=== PATIENT | male | born 1990 | race Caucasian/White ===

== ENCOUNTER 2021-11-18 18:55 | Emergency (ER) | payer OTHER, SELFPAY ==
--- NOTE | ~2021-11-18 | XR_ITS ---
EXAMINATION: XR ankle RT min 3V DATE: 11/18/2021 19:18 INDICATION: Right ankle injury and pain. TECHNIQUE: 4 views of right ankle were obtained. COMPARISON: None. FINDINGS: Bone alignment is normal. No fracture. Joint spaces are normal. There is an enthesophyte at plantar aspect of calcaneal tuberosity. IMPRESSION: 1. No fracture. Reviewed, dictated and finalized at location A. IMPRESSION: 1. No fracture.
[2021-11-18 19:03] VITALS: BP 135/85; PULSE 89; RESP 16; TEMP 37; O2SAT 100
--- NOTE | 2021-11-18 19:11 | ED.GENADULT ---
HPI - General Adult General Chief complaint: Extremity Injury, Lower Stated complaint: Right ankle pain Time Seen by Provider: 11/18/21 18:57 Source: patient Mode of arrival: ambulatory Limitations: no limitations History of Present Illness HPI narrative: Patient presents for evaluation of right ankle pain. He indicates that he was working approximately 1 week ago when a piece of steel hit him in the right ankle. Since that time he has had constant pain in the affected area. At rest his pain is 5 out of 10 in severity but increases to 7 out of 10 with weightbearing and palpation of the affected area. No radicular component. No paresthesias. He reports associated bruising. He has not taken any medication to assist with his symptoms. No additional complaints or concerns. Related Data Home Medications Medication Instructions Recorded Confirmed No Home Medications 11/18/21 11/18/21 Allergies Allergy/AdvReac Type Severity Reaction Status Date / Time No Known Allergies Allergy Verified 11/18/21 19:08 Review of Systems Review of Systems: CONSTITUTIONAL: Denies fever, chills, or sweats. EYES: Denies visual changes, redness, or discharge. ENT: Denies rhinorrhea, congestion, sore throat, or otalgia. CARDIOVASCULAR: Denies chest pain, palpitations, or edema. RESPIRATORY: Denies cough or dyspnea. GASTROINTESTINAL: Denies abdominal pain, nausea, vomiting, or diarrhea. GENITOURINARY: Denies dysuria or hematuria. SKIN: Reports bruising to the right ankle MUSCULOSKELETAL: Reports right ankle pain NEUROLOGIC: Denies headache, numbness, dizziness, or weakness. PSYCHIATRIC: Denies anxiety or depression. [facility] Past Medical History Medical History (Updated 11/18/21 @ 19:27 by HONEY Freedman, ) No pertinent past medical history Surgical History Surgical History (Updated 11/18/21 @ 19:13 by HONEY Freedman, ) No pertinent past surgical history Family History Family History Mother Family history non-contributory Social History Social History Smoking status: Never smoker Substance use: never Gender identity (if verbalized by the patient): Male Spiritual care concerns: No Exam Narrative: GENERAL: Well-appearing, well-nourished, and in no acute distress. HEAD: Normocephalic, atraumatic. EYES: PERRLA and EOMI. ENT: Nares clear, no rhinorrhea or epistaxis. Mucous membranes moist. Oropharynx without tonsillar hypertrophy exudate or other lesions. Bilateral TMs pearly castaneda nonbulging NECK: Supple. No adenopathy or masses. No carotid bruits or JVD CHEST: Clear to auscultation. No respiratory distress. No wheezes rales or rhonchi HEART: Regular rate and rhythm. No murmur heard. Normal peripheral pulses. ABDOMEN: Soft, nontender, nondistended, normal active bowel sounds. EXTREMITIES: There is tenderness noted to medial aspect of right ankle with trace soft tissue swelling. No crepitus or deformity. Able to dorsi and plantarflex the right foot SKIN: Bruising noted inferior to the right medial malleolus NEURO: No focal deficits. Alert and oriented x3. PSYCH: Normal mood and affect. Course Course Emergency Course: This is a 31-year-old male who presented for evaluation of right ankle pain. He declined analgesics while here. He was negative for fracture. Exam is consistent with contusion. Advised on RICE therapy. NSAIDs for pain. Offered josé wrap which he declined. Follow up outpatient for further evaluation and treatment and return for worsening symptoms. Pt in agreement with plan of care. Level of Care: Express Care Visit Vital Signs Vital signs: Vital Signs Temperature 37.0 C 11/18/21 19:03 Pulse Rate 89 11/18/21 19:03 Respiratory Rate 16 11/18/21 19:03 Blood Pressure 135/85 11/18/21 19:03 Pulse Oximetry 100 11/18/21 19:03 Oxygen Delivery [place]
== END 2021-11-18 19:30 | disposition home or self-care (01) ==
PROVIDERS: Emergency Provider Nurse Practitioner
DX: S90.01XA Contusion of right ankle, initial encounter (principal); W22.8XXA Striking against or struck by other objects, initial encounter
CPT/HCPCS: 73610; 99213; G0463

== ENCOUNTER 2023-05-18 18:37 | Emergency (ER) | payer OTHER, SELFPAY ==
[2023-05-18 18:48] VITALS: BP 144/99; PULSE 84; RESP 18; TEMP 37.3; O2SAT 100
--- NOTE | 2023-05-18 19:53 | ED.GENADULT ---
HPI - General Adult General Chief complaint: Eye Problems Stated complaint: Right Eye Swelling Source: patient Mode of arrival: ambulatory Limitations: no limitations History of Present Illness HPI narrative: Patient presents for evaluation of right eye irritation. Symptom onset this morning. He reports redness to the eye and lids, thick green discharge from the eye, some blurred vision, itching and pain. This child had pinkeye last week. Patient denies any fever, chills, nausea, vomiting, involvement of the left eye. He is not diabetic. He does not wear glasses or contacts. No hx of HSV. Related Data Allergies Allergy/AdvReac Type Severity Reaction Status Date / Time No Known Allergies Allergy Verified 11/18/21 19:08 Review of Systems Review of Systems: CONSTITUTIONAL: Denies fever, chills, or sweats. EYES: Reports right eye irritation, redness, pain, blurred vision, green discharge ENT: Denies rhinorrhea, congestion, sore throat, or otalgia. CARDIOVASCULAR: Denies chest pain, palpitations, or edema. RESPIRATORY: Denies cough or dyspnea. GASTROINTESTINAL: Denies abdominal pain, nausea, vomiting, or diarrhea. GENITOURINARY: Denies dysuria or hematuria. SKIN: Denies rash or itching. MUSCULOSKELETAL: Denies back pain, joint pain, or myalgia. NEUROLOGIC: Denies headache, numbness, dizziness, or weakness. PSYCHIATRIC: Denies anxiety or depression. [facility] Past Medical History Medical History No pertinent past medical history Surgical History Surgical History No pertinent past surgical history Family History Family History Mother Family history non-contributory Social History Social History Smoking status: Never smoker Substance use: never Gender identity (if verbalized by the patient): Male Spiritual care concerns: No Exam Narrative: GENERAL: Well-appearing, well-nourished, and in no acute distress. HEAD: Normocephalic, atraumatic. EYES: PERRLA and EOMI. Right conjunctival injection with swelling of the right upper and lower lids. ENT: Nares clear, no rhinorrhea or epistaxis. Mucous membranes moist. Oropharynx without tonsillar hypertrophy exudate or other lesions. Bilateral TMs pearly castaneda nonbulging NECK: Supple. No adenopathy or masses. No carotid bruits or JVD CHEST: Clear to auscultation. No respiratory distress. No wheezes rales or rhonchi HEART: Regular rate and rhythm. No murmur heard. Normal peripheral pulses. ABDOMEN: Soft, nontender, nondistended, normal active bowel sounds. EXTREMITIES: Normal range of motion. No edema. SKIN: There is erythema to right upper and lower eyelids NEURO: No focal deficits. Alert and oriented x3. PSYCH: Normal mood and affect. Course Course Emergency Course: This is a 33-year-old male who presented for evaluation of right eye irritation, redness, drainage. He has evidence of conjunctivitis. Redness to right upper and lower lids are likely from rubbing as opposed to periorbital cellulitis but will cover with oral abx. Advised on hand hygiene. No hx of HSV to suggest herpes ophthalmicus. Follow up with primary care provider. Go to the ER for worsening symptoms. Pt in agreement with plan of care. Level of Care: Express Care Visit Vital Signs Vital signs: Vital Signs Temperature 37.3 C 05/18/23 18:48 Pulse Rate 84 05/18/23 18:48 Respiratory Rate 18 05/18/23 18:48 Blood Pressure 144/99 H 05/18/23 18:48 Pulse Oximetry 100 05/18/23 18:48 Oxygen Delivery Room Air 05/18/23 18:48 Temperature 37.3 C 05/18/23 18:48 Pulse Rate 84 05/18/23 18:48 Respiratory Rate 18 05/18/23 18:48 Blood Pressure 144/99 H 05/18/23 18:48 Pulse Oximetry 100 05/18/23 18:48 Oxygen Delivery Room
== END 2023-05-18 20:01 | disposition home or self-care (01) ==
PROVIDERS: Emergency Provider Nurse Practitioner
DX: H10.9 Unspecified conjunctivitis (principal)
CPT/HCPCS: 99213; G0463